=== PATIENT | female | born 1980 | race Caucasian/White ===

== ENCOUNTER 2019-03-27 21:33 | Emergency (ER) | payer OTHER, SELFPAY ==
[2019-03-27 23:41] LABS: Absolute Lymphocytes (CBC) 2.6 K/uL (0.7-4.9); Basophils % 0.7 % (0-1.3); Eosinophils % 1.5 % (0-4.4); Lymphocytes % 27.5 % (15.3-44.8); MPV 8.9 fL (7.6-11.3); Monocytes % 8.9 % (3.3-12.3); RBC Red Blood Cell Count 4.42 M/uL (3.86-4.86)
[2019-03-27] MEDS ORDERED: KETOROLAC 30 MG/ML INJ ONE (23:45)
[2019-03-27] MEDS ORDERED: ONDANSETRON 4 MG/2 ML VIAL ONE (23:46)
[2019-03-27 23:57] LABS: ALT/SGPT 18 U/L (12-78); AST/SGOT 7 U/L (15-37); Alkaline Phosphatase 61 U/L (45-117); BUN Blood Urea Nitrogen 14 mg/dL (7-18); Bicarbonate 26 mmol/L (21-32); Bilirubin Direct < 0.1 mg/dL (0-0.2); Bilirubin Total 0.3 mg/dL (0.2-1.0); Glucose Level 103 mg/dL (74-106); Lipase 170 U/L (73-393); Potassium 3.6 mmol/L (3.5-5.1); Protein, Total 7.8 g/dL (6.4-8.2); Sodium Level 141 mmol/L (136-145)
[2019-03-28] MEDS ORDERED: ONDANSETRON 4 MG/2 ML VIAL ONE (00:04)
[2019-03-28 00:30] LABS: Urine Blood 3+ (NEG); Urine Glucose NEGATIVE (NEG); Urine Protein 1+ (NEG); Urine Specific Gravity >1.030 (1.005-1.030); Urine pH 5.5 (5.0-7.0)
[2019-03-28 02:12] LABS: Calcium Oxalate Crystals- Ur MODERATE (NONE SEEN); Urine Amorphous Sediment 2+ /HPF (NONE SEEN); Urine Culture Reflex Order REFLEXED
[2019-03-28 02:13] LABS: Urine Bacteria >50 /HPF (<20); Urine RBC <5 /HPF (NONE SEEN)
[2019-03-28] MEDS ORDERED: CEFTRIAXONE/SWI 1gm 1 GM/10 ML SYR ONE (02:48)
--- NOTE | 2019-03-28 02:49 | EDPHYS ---
Physician Documentation [facility] Name: Tasha Rhodes Age: 38 yrs Sex: Female : 1980 Arrival Date: 03/27/2019 Time: 21:38 Bed 5 Private MD: ED Physician Yaw Brian HPI: 03/28 03:00 This 38 yrs old Female presents to ER via Ambulatory with complaints of gs Nausea, Abdominal Pain. 03:00 The patient presents with abdominal pain in the lower abdomen. Onset: The gs symptoms/episode began/occurred 3 day(s) ago. The symptoms do not radiate. Associated signs and symptoms: Pertinent positives: nausea, Pertinent negatives: diarrhea, vomiting. The symptoms are described as crampy. Severity of pain: At its worst the pain was moderate in the emergency department the pain is unchanged. The patient has not experienced similar symptoms in the past. 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 - Social history:: Smoking status: Patient/guardian denies using tobacco. - Ebola Screening: : No symptoms or risks identified at this time. ROS: 03/28 03:00 All other systems are negative. gs Exam: 03:00 Head/Face: Normocephalic, atraumatic. Eyes: Pupils equal round and reactive to light, gs extra-ocular motions intact. Lids and lashes normal. Conjunctiva and sclera are non-icteric and not injected. Cornea within normal limits. Periorbital areas with no swelling, redness, or edema. ENT: Nares patent. No nasal discharge, no septal abnormalities noted. Tympanic membranes are normal and external auditory canals are clear. Oropharynx with no redness, swelling, or masses, exudates, or evidence of obstruction, uvula midline. Mucous membranes moist. Neck: Trachea midline, no thyromegaly or masses palpated, and no cervical lymphadenopathy. Supple, full range of motion without nuchal rigidity, or vertebral point tenderness. No Meningismus. Chest/axilla: Normal chest wall appearance and motion. Nontender with no deformity. No lesions are appreciated. Cardiovascular: Regular rate and rhythm with a normal S1 and S2. No gallops, murmurs, or rubs. Normal PMI, no JVD. No pulse deficits. Respiratory: Lungs have equal breath sounds bilaterally, clear to auscultation and percussion. No rales, rhonchi or wheezes noted. No increased work of breathing, no retractions or nasal flaring. Back: No spinal tenderness. No costovertebral tenderness. Full range of motion. Skin: Warm, dry with normal turgor. Normal color with no rashes, no lesions, and no evidence of cellulitis. MS/ Extremity: Pulses equal, no cyanosis. Neurovascular intact. Full, normal range of motion. Neuro: Awake and alert, GCS 15, oriented to person, place, time, and situation. Cranial nerves II-XII grossly intact. Motor strength 5/5 in all extremities. Sensory grossly intact. Cerebellar exam normal. Normal gait. 03:00 Constitutional: The patient appears alert, awake. 03:00 Abdomen/GI: Palpation: moderate abdominal tenderness, in the suprapubic area, right lower quadrant and left lower quadrant. Vital Signs: 03/27 21:49 BP 127 / 68; Pulse 69; Resp 18; Temp 97.9(O); Pulse Ox 99% on R/A; Weight 83.91 kg (R); lp1 Height 5 ft. 8 in. (172.72 cm); Pain 9/10; 03/28 00:51 BP 110 / 76; Pulse 70; Resp 18; Pulse Ox 99% on R/A; ea 01:49 BP 106 / 66; Pulse 68; Resp 18; Pulse Ox 98% on R/A; ea 02:50 BP 107 / 66; Pulse 70; Resp 18; Temp 98; Pulse Ox 99% ; ea 03/27 21:49 Body Mass Index 28.13 (83.91 kg, 172.72 cm) lp1 MDM: 03/27 23:06 Patient medically screened. gs 03/28 03:00 Differential diagnosis: appendicitis, non-specific abd pain, urinary tract infection. gs Data reviewed: vital signs, nurses notes, lab test result(s). Counseling: I had a detailed discussion with the patient and/or guardian regarding: the historical points, exam findings, and any diagnostic results supporting the discharge/admit diagnosis, radiology results, the need for outpatient follow up. Response to treatment: the patient's symptoms have markedly improved after treatment, and as a result, I will discharge patient. 03/27 22:46 Order name: Urine Dipstick--Ancillary (enter results); Complete Time: 01:24 [facility] 03/27 22:46 Order name: Urine --Ancillary (enter results); Complete Time: 01:24 [facility] 03/27 23:18 Order name: Basic Metabolic Panel 03/27 23:18 Order name: CBC with Diff; Complete Time: 01:24 03/27 23:18 Order name: Hepatic Function; Complete Time: 01:24 03/27 23:18 Order name: Lipase; Complete Time: 01:24 03/27 23:20 Order name: Basic Metabolic Panel; Complete Time: 01:24 [facility] 03/27 23:37 Order name: CT Abd/Pelvis - IV Contrast Only 03/28 01:58 Order name: Urine Microscopic Only; Complete Time: 02:16 03/28 02:15 Order name: Urine Culture [facility] 03/27 23:18 Order name: IV Saline Lock; Complete Time: 23:38 03/27 23:18 Order name: Labs collected and sent; Complete Time: 23:38 Administered Medications: 03/27 23:37 Drug: TORadol - Ketorolac 15 mg Route: IVP; Site: right antecubital; ea 03/28 00:30 Follow up: Response: No adverse reaction; Pain is decreased 03/27 23:37 Drug: Zofran 4 mg Route: IVP; Site: right antecubital; ea 23:51 Follow up: Response: Nausea unchanged lp1 23:51 Drug: Zofran 4 mg Route: IVP; Site: right antecubital; lp1 03/28 00:30 Follow up: Response: No adverse reaction; Nausea is decreased ea 02:37 Drug: Rocephin 1 grams Route: IV; Rate: calculated rate; Site: right antecubital; ea 02:57 Follow up: Response: No adverse reaction; IV Status: Completed infusion ea Disposition: 03/28/19 02:49 Discharged to Home. Impression: Lower abdominal pain, unspecified, Urinary tract infection, site not specified. - Condition is Stable. - Discharge Instructions: Abdominal Pain, Adult, Urinary Tract Infection, Adult, [id number]. - Prescriptions for Keflex 500 mg Oral Capsule - take 1 capsule by ORAL route every 12 hours for 5 days; 10 capsule. - Medication Reconciliation Form, Thank You Letter, Antibiotic Education, Prescription Opioid Use form. - Follow up: Private Physician; When: 1 - 2 days; Reason: Re-evaluation by your physician. Signatures: Dispatcher [employer] EDVicky Price RN RN lp1 Vibha Hamlin RN RN ea Yaw Brian MD MD gs Corrections: (The following items were deleted from the chart) 03:00 02:49 03/28/2019 02:49 Discharged to Home. Impression: Lower abdominal pain, ea unspecified; Urinary tract infection, site not specified. Condition is Stable. Forms are Medication Reconciliation Form, Thank You Letter, Antibiotic Education, Prescription Opioid Use. Follow up: Private Physician; When: 1 - 2 days; Reason: Re-evaluation by your physician. gs
--- NOTE | 2019-03-28 02:49 | ER ---
Nurse's Notes [facility] Name: Tasha Rhodes Age: 38 yrs Sex: Female : 1980 Arrival Date: 03/27/2019 Time: 21:38 Bed 5 Private MD: Diagnosis: Lower abdominal pain, unspecified;Urinary tract infection, site not specified Presentation: 03/27 21:46 Presenting complaint: Patient states: Lower abdominal pain that began yesterday; lp1 pointing to pelvic area, complaint of nausea; States urinary frequency; hx of painful cramps but unsure if this is similar. Transition of care: patient was not received from another setting of care. Onset of symptoms was March 27, 2019. Risk Assessment: Do you want to hurt yourself or someone else? Patient reports no desire to harm self or others. 21:46 Method Of Arrival: Ambulatory lp1 21:46 Acuity: JOHNNIE 3 lp1 21:51 Initial Sepsis Screen: Does the patient meet any 2 criteria? No. Patient's initial lp1 sepsis screen is negative. Does the patient have a suspected source of infection? No. Patient's initial sepsis screen is negative. Care prior to arrival: None. Triage Assessment: 21:54 General: Appears uncomfortable, Behavior is appropriate for age. Pain: Complains of lp1 pain in suprapubic area Pain currently is 9 out of 10 on a pain scale. Quality of pain is described as sharp. GI: Reports nausea. : Reports urinary frequency. 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 - Social history:: Smoking status: Patient/guardian denies using tobacco. - Ebola Screening: : No symptoms or risks identified at this time. Screenin:51 Abuse screen: Denies threats or abuse. Denies injuries from another. Nutritional lp1 screening: No deficits noted. Tuberculosis screening: No symptoms or risk factors identified. Fall Risk None identified. Assessment: 23:30 General: Appears uncomfortable, Behavior is cooperative, restless. Pain: Complains of ea pain in pelvis and suprapubic area. Neuro: Level of Consciousness is awake, alert, obeys commands, Oriented to person, place, time. Cardiovascular: Patient's skin is warm and dry. Respiratory: Airway is patent Respiratory effort is even, unlabored, Respiratory pattern is regular, symmetrical. Derm: Skin is diaphoretic, Skin is normal, Skin temperature is warm. 23:50 Reassessment: Provider notified of patient with no nausea relief; Verbal order to lp1 administer Zofran 4mg IV. 03/28 00:50 Reassessment: Patient and/or family updated on plan of care and expected duration. Pain ea level reassessed. Patient is alert, oriented x 3, equal unlabored respirations, skin warm/dry/pink. Patient states feeling better. Patient states symptoms have improved. 01:49 Reassessment: Patient and/or family updated on plan of care and expected duration. Pain ea level reassessed. Patient is alert, oriented x 3, equal unlabored respirations, skin warm/dry/pink. Patient states feeling better. Patient states symptoms have improved. 02:54 Reassessment: Patient and/or family updated on plan of care and expected duration. Pain ea level reassessed. Patient is alert, oriented x 3, equal unlabored respirations, skin warm/dry/pink. Discharge instruction given to patient, verbalized the understanding of instruction Pt left ED ambulatory accompanied by family, pt tolerating well Patient states feeling better. Patient states symptoms have improved. Vital Signs: 03/27 21:49 BP 127 / 68; Pulse 69; Resp 18; Temp 97.9(O); Pulse Ox 99% on R/A; Weight 83.91 kg (R); lp1 Height 5 ft. 8 in. (172.72 cm); Pain 9/10; 03/28 00:51 BP 110 / 76; Pulse 70; Resp 18; Pulse Ox 99% on R/A; ea 01:49 BP 106 / 66; Pulse 68; Resp 18; Pulse Ox 98% on R/A; ea 02:50 BP 107 / 66; Pulse 70; Resp 18; Temp 98; Pulse Ox 99% ; ea 03/27 21:49 Body Mass Index 28.13 (83.91 kg, 172.72 cm) lp1 ED Course: 03/27 21:38 Patient arrived in ED. es 21:48 Triage completed. lp1 21:49 Arm band placed on. lp1 22:44 Yaw Brian MD is Attending Physician. gs 23:23 Vibha Hamlin, RIMA is Primary Nurse. ea 23:30 Patient has correct armband on for positive identification. Bed in low position. Call ea light in reach. Side rails up X 1. 23:35 Inserted saline lock: 20 gauge in right antecubital area, using aseptic technique. lp1 Blood collected. 23:50 Radiology exam delayed due to lab results not completed at this time. (HCG) eh (BUN/Creatinine) test not completed at this time. 03/28 00:[address] via wheelchair. eh 00:36 CT completed. Patient tolerated procedure well. Patient moved back from CT. eh 00:47 CT Abd/Pelvis - IV Contrast Only In Process Unspecified. EDMS 02:40 IV discontinued, intact, bleeding controlled, No redness/swelling at site. Pressure ea dressing applied. 02:55 No provider procedures requiring assistance completed. ea Administered Medications: 03/27 23:37 Drug: TORadol - Ketorolac 15 mg Route: IVP; Site: right antecubital; ea 03/28 00:30 Follow up: Response: No adverse reaction; Pain is decreased ea 03/27 23:37 Drug: Zofran 4 mg Route: IVP; Site: right antecubital; ea 23:51 Follow up: Response: Nausea unchanged lp1 23:51 Drug: Zofran 4 mg Route: IVP; Site: right antecubital; lp1 03/28 00:30 Follow up: Response: No adverse reaction; Nausea is decreased ea 02:37 Drug: Rocephin 1 grams Route: IV; Rate: calculated rate; Site: right antecubital; ea 02:57 Follow up: Response: No adverse reaction; IV Status: Completed infusion ea Outcome: 02:49 Discharge ordered by . gs 02:56 Discharged to home ambulatory, with family. ea 02:56 Condition: improved 02:56 Discharge instructions given to patient, Instructed on discharge instructions, follow up and referral plans. medication usage, Demonstrated understanding of instructions, follow-up care, medications, Prescriptions given X 1. 03:00 Patient left the ED. ea Signatures: Dispatcher [employer] EDRuth Villatoro Judson, Jed eh Greene, Vicky, RN RN lp1 Vibha Hamlin RN RN ea Yaw Brian MD MD gs
--- NOTE | 2019-03-28 11:41 | RAD REPORT ---
EXAM DESCRIPTION: Abdomen Pelvis W Contrast CLINICAL HISTORY: 38 years Female ABD PAIN COMPARISON: None TECHNIQUE: Images were obtained in axial, sagittal, and coronal planes. Intravenous contrast was adm inistered. This exam was performed according to our departmental dose-optimization program which includes use of Automated Exposure Control, adjustment of the mA and/or kV according to patient size and/or use of i terative reconstruction technique. FINDINGS: Appendix within normal limits. No bowel obstruction, perforation, or inflammation. Contracted gallbladder with gallbladder wall thickening. Possible tiny gallstone. No abnormality invo lving the liver, spleen, pancreas, or adrenal glands bilaterally. Symmetric renal function bilaterally. No hydronephrosis bilaterally. No obstructing renal calcificati ons bilaterally. Unremarkable bladder. Mildly enlarged uterus with cystic appearance endometrial cavi ty. Lobular appearance uterine fundus possibly fibroid change. No abnormality abdominal aorta or portal vein. No adenopathy or abnormal fluid collections seen. No abnormality lower lungs bilaterally. No acute osseous abnormality. IMPRESSION: Contracted gallbladder with suspected gallstones. Gallbladder wall thickening. Consider correlation with ultrasound of gallbladder for further characterization. Suspected fibroid uterus with cystic appearance endometrial cavity. Correlation with pelvic ultrasoun d ingested for further characterization. Endometrial cyst versus degenerating submucosal fibroid coul d be considered. Appendix within normal limits. Electronically signed by: Valentina Garcia MD 03/28/2019 12:56 AM CDT Due to temporary technical issues with the PACS/Fluency reporting system, reports are being signed by the in house radiologist as a courtesy to ensure prompt reporting. The interpreting radiologist is f ully responsible for the content of the report.
== END 2019-03-28 03:00 | disposition home or self-care (01) ==
LOC: ER 21:33
DX: N39.0 Urinary tract infection, site not specified (principal)
CPT/HCPCS: 36415; 74177; 80048; 80076; 81003; 81015; 81025; 83690; 85025; 87086; 87088; 96365; 96375; 99284; J0696; J2405; Q9967

== ENCOUNTER → 2023-10-29 | Emergency (ER) | payer OTHER, SELFPAY ==
[~2023-10-29] MED LIST: HYDROMORPHONE HCL 1 MG/ML INJ ONE; ONDANSETRON 4 MG/2 ML VIAL ONE
[2023-10-29 01:33] LABS: Absolute Lymphocytes (CBC) 1.5 K/uL (0.7-4.9); Lymphocytes % 13.4 % (15.3-44.8); MCV 90.8 fL (80-100); MPV 8.3 fL (7.6-11.3); Platelets 271 thou/uL (152-406)
[2023-10-29 01:51] LABS: Albumin 3.9 g/dL (3.4-5.0); Bilirubin Total 0.3 mg/dL (0.2-1.0); Potassium 3.6 mEq/L (3.5-5.1); Protein, Total 8.2 g/dL (6.4-8.2)
[2023-10-29 02:04] LABS: Specific Gravity 1.028 (1.005-1.030)
[2023-10-29 02:05] LABS: Specific Gravity 1.028 (1.005-1.030); Urine Bacteria None Seen /HPF (<20); Urine Bilirubin NEGATIVE (Negative); Urine Blood Negative (Negative); Urine Clarity Turbid (Clear); Urine Color Light-Yellow (Yellow); Urine Glucose NEGATIVE (Negative); Urine Mucus Slight /HPF (None Seen); Urine Protein TRACE (Negative); Urine RBC <5 /HPF (None Seen); Urine Urobilinogen 1+ (Normal); Urine pH 7.5 (5.0-7.0)
--- NOTE | 2023-10-29 02:08 | ER ---
Nurse's Notes [facility] Name: Tasha Rhodes Age: 43 yrs Sex: Female : 1980 Arrival Date: 10/29/2023 Time: 00:17 Bed 4 Private MD: Diagnosis: Endometriosis, abdominal pain Presentation: 10/29 00:29 Chief complaint: Patient states: i have endometriosis and normally i can tolerate the vc1 pain but I've reached my breaking point. normally it gets this bad i have a UTI as well. onset 1999. took 10mg Toradol at 2200 with no relief. lower left quadrant pain radiating to left leg. pain 10/10. Coronavirus screen: Client denies travel out of the [place] in the last 14 days. At this time, the client does not indicate any symptoms associated with coronavirus-19. Ebola Screen: No symptoms or risks identified at this time. Initial Sepsis Screen: Does the patient meet any 2 criteria? No. Patient's initial sepsis screen is negative. Does the patient have a suspected source of infection? No. Patient's initial sepsis screen is negative. Risk Assessment: Do you want to hurt yourself or someone else? Patient reports no desire to harm self or others. Onset of symptoms was October 28, 2023. 00:29 Method Of Arrival: Ambulatory vc1 00:29 Acuity: JOHNNIE 3 vc1 Triage Assessment: 00:33 General: Appears in no apparent distress. uncomfortable, Behavior is cooperative, vc1 crying, restless. Pain: Complains of pain in left lower quadrant Pain radiates to left leg. EENT: No deficits noted. No signs and/or symptoms were reported regarding the EENT system. Neuro: No deficits noted. Carvalho Agitation-Sedation Scale (RASS): 0 - Alert and Calm Level of Consciousness is awake, alert, obeys commands, Oriented to person, place, time, situation. Cardiovascular: No deficits noted. Denies chest pain, shortness of breath, Capillary refill < 3 seconds Clubbing of nail beds is absent JVD is absent Patient's skin is warm and dry. Respiratory: No deficits noted. Airway is patent Respiratory effort is even, unlabored, Respiratory pattern is regular, symmetrical. GI: Abdomen is round non-distended, Reports lower abdominal pain. : No deficits noted. Denies burning with urination, inability to void, urinary frequency, urgency. Derm: No deficits noted. No signs and/or symptoms reported regarding the dermatologic system. Skin is intact, is healthy with good turgor, Skin is dry, Skin is normal, Skin temperature is warm. Musculoskeletal: No deficits noted. No signs and/or symptoms reported regarding the musculoskeletal system. Circulation, motion, and sensation intact. Range of motion: intact in all extremities. 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 Flu vaccine is not up to date. - Social history:: Smoking status: Patient reports the use of cigarette tobacco products, denies chronic smoking, but will smoke occasionally, Patient uses alcohol, only on a social basis. Patient/guardian denies using street drugs. Screenin:15 [facility] ED Fall Risk Assessment (Adult) History of falling in the last 3 months, tm6 including since admission No falls in past 3 months (0 pts). Abuse screen: Denies threats or abuse. Denies injuries from another. Nutritional screening: No deficits noted. Tuberculosis screening: No symptoms or risk factors identified. Assessment: 01:15 General: Appears uncomfortable, Behavior is calm, cooperative. Pain: Complains of pain tm6 in left leg and left lower quadrant Pain currently is 10 out of 10 on a pain scale. Neuro: Level of Consciousness is awake, alert, obeys commands, Oriented to person, place, time, situation. Cardiovascular: Capillary refill < 3 seconds Patient's skin is warm and dry. Respiratory: Airway is patent Respiratory effort is even, unlabored, Respiratory pattern is regular, symmetrical. GI: Abdomen is flat, non-distended, Bowel sounds present X 4 quads. Abd is soft and non tender. : No signs and/or symptoms were reported regarding the genitourinary system. EENT: No signs and/or symptoms were reported regarding the EENT system. Derm: No signs and/or symptoms reported regarding the dermatologic system. Musculoskeletal: No signs and/or symptoms reported regarding the musculoskeletal system. 02:30 Reassessment: Patient appears in no apparent distress at this time. Patient and/or tm6 family updated on plan of care and expected duration. Pain level reassessed. Patient is alert, oriented x 3, equal unlabored respirations, skin warm/dry/pink. Vital Signs: 00:29 BP 148 / 95; Pulse 89; Resp 17 S; Temp 97.6(TE); Pulse Ox 100% on R/A; Weight 81.65 kg vc1 (R); Height 5 ft. 8 in. (R); Pain 10/10; 02:01 BP 122 / 82; Pulse 73; Pulse Ox 99% on R/A; Pain 0/10; tm6 02:29 BP 117 / 73; Pulse 72; Pulse Ox 99% on R/A; Pain 0/10; tm6 00:29 Body Mass Index 27.37 (81.65 kg, 172.72 cm) vc1 00:29 Pain Scale: Adult vc1 02:01 Pain Scale: Adult tm6 02:29 Pain Scale: Adult tm6 ED Course: 00:22 Patient arrived in ED. es 00:33 Triage completed. vc1 00:33 Arm band placed on left wrist. vc1 00:34 Catracho Martinez MD is Attending Physician. sp3 01:05 Inserted saline lock: 20 gauge in right antecubital area, using aseptic technique. rv1 Blood collected. 01:05 CBC with Diff Sent. rv1 01:05 CMP Sent. rv1 01:05 Lipase Sent. rv1 01:10 Kylah Junior, RN is Primary Nurse. vc1 01:15 Patient has correct armband on for positive identification. Bed in low position. Call tm6 light in reach. Side rails up X2. Provided Education on: plan of care. Client placed on continuous cardiac and pulse oximetry monitoring. NIBP monitoring applied. Door closed. Noise minimized. Lights dimmed. Warm blanket given. 01:15 No provider procedures requiring assistance completed. tm6 01:40 US Transvaginal Study (Probe): Assess for arterial flow bilateral In Process EDMS Unspecified. 02:36 IV discontinued, intact, bleeding controlled, No redness/swelling at site. Pressure tm6 dressing applied. Administered Medications: 01:10 Drug: HYDROmorphone IVP 1 mg IVP once Route: IVP; Site: left antecubital; vc1 01:10 Drug: Ondansetron IVP 4 mg IVP once; over 2 minutes Route: IVP; Site: left antecubital; vc1 Medication: 01:15 VIS not applicable for this client. tm6 Outcome: 02:08 Discharge ordered by . sp3 02:41 Discharged to home ambulatory, with family, tm6 02:41 Condition: stable 02:41 Discharge instructions given to patient, Instructed on discharge instructions, medication usage, Demonstrated understanding of instructions, follow-up care, medications, Prescriptions given X 1, 02:52 Patient left the ED. tm6 Signatures: Dispatcher [employer] Ruth Atwood Setul, MD MD sp3 Kylah Junior RN RN vc1 Fariba Harvey rv1 Asha Hui RN RN tm6
--- NOTE | 2023-10-29 02:08 | EDPHYS ---
Physician Documentation [facility] Name: Tasha Rhodes Age: 43 yrs Sex: Female : 1980 Arrival Date: 10/29/2023 Time: 00:17 Bed 4 Private MD: ED Physician Catracho Martinez HPI: 10/29 01:21 This 43 yrs old Female presents to ER via Ambulatory with complaints of Abdominal Pain. sp3 01:21 43-year-old female with history of endometriosis and recurrent abdominal pain secondary sp3 to this presents to the ED with chief complaint left lower quadrant abdominal pain that is worse than her baseline amounts. Patient states the pain was somewhat sudden onset on the left lower quadrant. She denies any other symptoms including dysuria, urinary frequency, low back pain, upper abdominal pain or right-sided abdominal pain. She denies any surgical history other than a uterine ablation. She is currently speaking to her [employer] for a possible hysterectomy. Review of systems negative for fever, URI symptoms, chest pain, shortness of breath, back pain, syncope, near syncope, rash, known sick contacts, travel history, vaginal bleeding or discharge, or any other signs or symptoms at this time.. [employer]: 00:33 LMP N/A - uterine ablasian, Not vc1 Historical: - Allergies: 00:33 No Known Allergies; vc1 - Home Meds: 00:33 None [Active]; vc1 - PMHx: 00:33 Endometriosis of vagina; vc1 - PSHx: 00:33 Ligation of fallopian tube; uterine ablasian; vc1 - Immunization history:: Adult Immunizations up to date, Client reports having NOT received the Covid vaccine. Flu vaccine is not up to date. - Social history:: Smoking status: Patient reports the use of cigarette tobacco products, denies chronic smoking, but will smoke occasionally, Patient uses alcohol, only on a social basis. Patient/guardian denies using street drugs. ROS: 01:23 Constitutional: Negative for fever, chills, and weight loss, Eyes: Negative for injury, sp3 pain, redness, and discharge, ENT: Negative for injury, pain, and discharge, Neck: Negative for injury, pain, and swelling, Cardiovascular: Negative for chest pain, palpitations, and edema, Respiratory: Negative for shortness of breath, cough, wheezing, and pleuritic chest pain, Back: Negative for injury and pain, : Negative for injury, bleeding, discharge, and swelling, MS/Extremity: Negative for injury and deformity, Skin: Negative for injury, rash, and discoloration, Neuro: Negative for headache, weakness, numbness, tingling, and seizure, Psych: Negative for depression, anxiety, suicide ideation, homicidal ideation, and hallucinations, Allergy/Immunology: Negative for hives, rash, and allergies, Endocrine: Negative for neck swelling, polydipsia, polyuria, polyphagia, and marked weight changes, :23 All other systems are negative, Exam: :23 Constitutional: This is a well developed, well nourished patient who is awake, alert, sp3 and in no acute distress. Head/Face: Normocephalic, atraumatic. Eyes: Pupils equal round and reactive to light, extra-ocular motions intact. Lids and lashes normal. Conjunctiva and sclera are non-icteric and not injected. Cornea within normal limits. Periorbital areas with no swelling, redness, or edema. ENT: Nares patent. No nasal discharge, no septal abnormalities noted. External auditory canals are clear. Oropharynx with no redness, swelling, or masses, exudates, or evidence of obstruction, uvula midline. Mucous membranes moist. Neck: Trachea midline, no thyromegaly or masses palpated, and no cervical lymphadenopathy. Supple, full range of motion without nuchal rigidity, or vertebral point tenderness. No Meningismus. Chest/axilla: Normal chest wall appearance and motion. Nontender with no deformity. No lesions are appreciated. Cardiovascular: Regular rate and rhythm with a normal S1 and S2. No gallops, murmurs, or rubs. Normal PMI, no JVD. No pulse deficits. Respiratory: Lungs have equal breath sounds bilaterally, clear to auscultation and percussion. No rales, rhonchi or wheezes noted. No increased work of breathing, no retractions or nasal flaring. Back: No spinal tenderness. No costovertebral tenderness. Full range of motion. Skin: Warm, dry with normal turgor. Normal color with no rashes, no lesions, and no evidence of cellulitis. MS/ Extremity: Pulses equal, no cyanosis. Neurovascular intact. Full, normal range of motion. Neuro: Awake and alert, GCS 15, oriented to person, place, time, and situation. Cranial nerves II-XII grossly intact. Motor strength 5/5 in all extremities. Sensory grossly intact. Cerebellar exam normal. Normal gait. Psych: Awake, alert, with orientation to person, place and time. Behavior, mood, and affect are within normal limits. 01:23 Abdomen/GI: Left lower quadrant abdominal pain without peritoneal signs, rebound or guarding. However pain is severe when palpated. No CVA tenderness noted., Vital Signs: 00:29 BP 148 / 95; Pulse 89; Resp 17 S; Temp 97.6(TE); Pulse Ox 100% on R/A; Weight 81.65 kg vc1 (R); Height 5 ft. 8 in. (R); Pain 10/10; 02:01 BP 122 / 82; Pulse 73; Pulse Ox 99% on R/A; Pain 0/10; tm6 02:29 BP 117 / 73; Pulse 72; Pulse Ox 99% on R/A; Pain 0/10; tm6 00:29 Body Mass Index 27.37 (81.65 kg, 172.72 cm) vc1 00:29 Pain Scale: Adult vc1 02:01 Pain Scale: Adult tm6 02:29 Pain Scale: Adult tm6 MDM: 00:34 Patient medically screened. sp3 01:24 Data reviewed: vital signs, nurses notes, lab test result(s), radiologic studies. ED sp3 course: 43-year-old female with endometriosis with left lower quad abdominal pain differential diagnosis includes endometrial referred pain, satellite lesions, ovarian cyst, ovarian torsion, UTI/pyelonephritis spectrum, GI pathology, among others. I am not highly suspicious for kidney stone, STI/cervicitis, related pathology, or any other critical process at this time including sepsis and shock. Workup will include laboratory values, urine analysis and ultrasound transvaginal including ovarian arterial flow. Dilaudid and Zofran IV for pain control. Disposition pending workup and patient course with probable discharge if she feels better and workup does not demonstrate any significant pathology.. 02:07 ED course: UA demonstrates leukocyte esterase however no WBCs and no bacteria seen. sp3 Nitrates are negative. Remainder of blood work is also without significant abnormality. Ultrasound demonstrates positive arterial flow bilateral ovaries with no pelvic free fluid. Patient feels much better after pain medication and her vital signs are normal. 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 10/29 00:48 Order name: CBC with Diff; Complete Time: :59 sp3 10/29 00:48 Order name: CMP; Complete Time: :59 sp3 10/29 00:48 Order name: Lipase; Complete Time: : sp3 10/29 00:48 Order name: Test, Urine; Complete Time: 02:07 sp3 10/29 00:48 Order name: Urinalysis w/ reflexes; Complete Time: 02:07 sp3 10/29 00:48 Order name: US Transvaginal Study (Probe): Assess for arterial flow bilateral sp3 10/29 00:48 Order name: IV Saline Lock; Complete Time: 01:05 sp3 10/29 00:48 Order name: Labs collected and sent; Complete Time: 01:05 sp3 Administered Medications: 01:10 Drug: HYDROmorphone IVP 1 mg IVP once Route: IVP; Site: left antecubital; vc1 01:10 Drug: Ondansetron IVP 4 mg IVP once; over 2 minutes Route: IVP; Site: left antecubital; vc1 Disposition Summary: 10/29/23 02:08 Discharge Ordered Notes: Location: Home sp3 Condition: Stable sp3 Diagnosis - Endometriosis, abdominal pain sp3 Followup: sp3 - With: Private Physician - When: Upon discharge from the Emergency Department - Reason: Continuance of care Discharge Instructions: - Discharge Summary Sheet sp3 - Endometriosis sp3 Forms: - Medication Reconciliation Form sp3 - Thank You Letter sp3 - Antibiotic Education sp3 - Prescription Opioid Use sp3 - Patient Portal Instructions sp3 - Leadership Thank You Letter sp3 Prescriptions: - Ibuprofen 800 mg Oral Tablet - take 1 tablet ORAL route every 8 hours As needed take with food; 30 tablet; sp3 Refills: 0, Product Selection Permitted Signatures: Dispatcher [employer] Catracho Bush MD MD sp3 Kylah Junior RN RN vc1
[2023-10-29 09:04] VITALS: BP 117/73; TEMP 97.6; O2SAT 99
--- NOTE | 2023-10-30 19:21 | RAD REPORT ---
EXAM DESCRIPTION: US - Transvaginal Study Probe - 10/29/2023 1:38 am CLINICAL HISTORY: 43 years Female ABD PAIN COMPARISON: None TECHNIQUE: Transabdominal and endovaginal pelvic ultrasound was performed. FINDINGS: The uterus measures 8.3 cm longitudinally.. Heterogeneous myometrium. 1.5 cm mildly lobula karan mostly hypoechoic mass in the body of the uterus, most consistent with fibroid which may be submu cosal. Subendometrial cysts are seen along the lower uterine segment.. The endometrial stripe is not well-de fined The right ovary measures1.9 x 3.3 x 2 cm. The right ovary appears unremarkable. Vascular flow is dete cted within the ovary. Left ovary not visualized. No evidence of adnexal masses or fluid in the pelvic cul-de-sac. IMPRESSION: 1. Mildly lobulated mostly hypoechoic mass in the body of the uterus most consistent w ith fibroid which may be submucosal. 2. The endometrial stripe is not well-defined. Heterogeneous myometrium. Subendometrial cysts are s een along the lower uterine segment. These findings may be seen with adenomyosis. 3. Left ovary not visualized. Electronically signed by: Chin Jean Baptiste MD 10/29/2023 02:14 AM EXPLOSIVE OPERATOR BOMB Due to temporary technical issues with the PACS/Fluency reporting system, reports are being signed by the in house radiologists without review as a courtesy to insure prompt reporting. The interpreting radiologist is fully responsible for the content of the report.
== END ==
LOC: ER 00:17
DX: N80.9 Endometriosis, unspecified (principal); R10.32 Left lower quadrant pain
CPT/HCPCS: 85025; 81001; 36415; 81025; 83690; 80053; 76830; 96375; 96374; 99284; J1170; J2405